=== PATIENT | female | born 1985 | race Asian ===

== ENCOUNTER 2024-06-07 15:18 | Emergency (ER) | payer MEDICAID ==
[~2024-06-07] VITALS: Ht 172.7 cm; Wt 105.0 kg
[2024-06-07 15:33] VITALS: O2SAT 99
[2024-06-07] MEDS ORDERED: IBUP-1525 MT (16:00)
[2024-06-07 16:21] VITALS: BP 123/77; PULSE 60; RESP 18; TEMP 98.1
[2024-06-07] MEDS: IBUPROFEN 800MG TABLET PO ONE (16:21)
[2024-06-07] MEDS: ACETAMINOPHEN 325MG TABLET PO ONE (16:21)
== END 2024-06-07 16:21 | disposition home or self-care (01) ==
LOC: ER 15:31
DX: S61.218D Laceration without foreign body of other finger without damage to nail, subsequent encounter (principal); Z48.02 Encounter for removal of sutures; X58.XXXD Exposure to other specified factors, subsequent encounter
CPT/HCPCS: 99283